=== PATIENT | male | born 1990 | race Caucasian/White ===

== ENCOUNTER 2022-11-18 11:04 | Day surgery (SDC) | payer MEDICARE, OTHER ==
[2022-11-18] VITALS (15 sets, daily range): BP systolic 106–144; BP diastolic 54–92
[~2022-11-18] VITALS: Ht 182.9 cm; Wt 120.4 kg
[~2022-11-18 11:04] MED LIST: Cymbalta20 MG PO; ESCI10 PO; LAMO100 PO; LORA.5 PO; MEMANTINE HCL PO; MINO50 PO; PROP10 PO; RIZATRIPTAN10 MG SL; TRAZ100 PO
--- NOTE | 2022-11-18 16:33 | NUR ---
REPORT RECEIVED FROM JUAN FRANKLIN. VSS. PT ABLE TO REPOSITION SELF IN BED. PT REQUESTING PO FLUIDS AND FOOD AND TOLERATING THEM WELL. PT REPORTS 4/10 ACHING PAIN TO LEFT WRIST. PT DENIES NAUSEA AT THIS TIME. PT DRESSING C/D/I WITHOUT DRAINAGE, REDNESS, OR SWELLING. PT LEFT ARM RESTING ON PILLOW FOR COMFORT. PT ABLE TO MOVE FINGERS AND HAS BRISK CAPILLARY REFILL.
--- NOTE | 2022-11-18 17:19 | NUR ---
Patient up to Ambulate independently. Gait steady. VSS. Discharge instructions reviewed with patient. Patient verbalizes understanding. Copy given to patient to take home. Dressing to procedure site clean, dry, intact with no visible drainage, swelling, erythema or bruising noted. PT ABLE TO MOVE FINGERS AND HAS BRISK CAPILLARY REFILL. Patient States Post-Procedure ride home has been arranged. Discharged via wheelchair to private car for ride home. PT BELONGINGS RETURNED TO PT.
== END 2022-11-18 22:46 | disposition home or self-care (01) ==
LOC: ORSCMMR 11:04 → ORD 12:30 → ORSCMMR 12:30
PROVIDERS: Orthopaedic Surgery
PROC: 0PSJ04Z Reposition Left Radius with Internal Fixation Device, Open Approach (ICD-10-PCS; principal; 2022-11-18 12:30)
DX: S52.532A Colles' fracture of left radius, initial encounter for closed fracture (principal); F41.9 Anxiety disorder, unspecified; Z79.899 Other long term (current) drug therapy; V86.59XA Driver of other special all-terrain or other off-road motor vehicle injured in nontraffic accident, initial encounter; Y92.832 Beach as the place of occurrence of the external cause
CPT/HCPCS: A9270; C1713; C1769; J0690; J1100; J1885; J2250; J2405; J2704; J3010; J7120